=== PATIENT | male | born 1940 | race Caucasian/White ===

== ENCOUNTER 2018-07-02 12:34 | Day surgery (SDC) | payer MEDICARE, BC, OTHER ==
[~2018-07-02] VITALS: Ht 167.6 cm; Wt 68.4 kg
[~2018-07-02 12:34] MED LIST: GLYCOPYRROLATE INJ 0.2 MG/ML 2 ML VIAL As Ordered ONE; HYDROmorphone HCL 2 MG/ML 1ML VIAL (J1170) As Ordered ONE; LIDOCAINE 2% INJ 100 MG/5 ML SDV (FOR ANES.) As Ordered ONE; MIDAZOLAM INJ 2 MG/2 ML VIAL (J2250) As Ordered ONE; NEOSTIGMINE 10 MG/10 ML VIAL (J2710) As Ordered ONE; ONDANSETRON 4MG/2ML VIAL (J2405) As Ordered ONE; PHENYLephrine HCL 500 MCG/5 ML (100MCG/ML) SYRINGE (J2370) As Ordered ONE; PROPOFOL 200 MG/20 ML VIAL As Ordered ONE; ROCURONIUM BROMIDE 50 MG/5 ML VIAL As Ordered ONE; dexameTHASONE 4 MG/ML 1ML VIAL (J1100) As Ordered ONE; fentaNYL 100 MCG/2 ML INJECTION (J3010) As Ordered ONE
[2018-07-02] MEDS ORDERED: BUPIVACAINE/EPIN 0.25% 30 ML VIAL As Ordered ONE (13:00)
[2018-07-02] MEDS ORDERED: BACITRACIN PWD 50,000 UNITS VIAL As Ordered ONE (13:00)
[2018-07-02] MEDS ORDERED: THROMBIN SOLN 20,000 UNITS KIT As Ordered ONE (13:00)
[2018-07-02] MEDS ORDERED: CelecoXIB (CeleBREX) 100 MG CAP PO ONE (13:15)
[2018-07-02] MEDS ORDERED: PERCOCET 5MG/325MG TAB PO ONE (13:15)
[2018-07-02] MEDS ORDERED: GABAPENTIN 300 MG CAP PO ONE (13:15)
[2018-07-02] MEDS ORDERED: VANCOMYCIN HCL 1,000 MG, VIAL MATE ADAPTER 1 EACH in D5W 250 ML IV ONE (13:15)
[2018-07-02] MEDS ORDERED: LR 1,000 ML IV SCH ×2 (13:15→17:30)
[2018-07-02] MEDS ORDERED: ePHEDrine SULFATE 25 MG/5 ML(5MG/ML) SYRINGE As Ordered ONE (15:55)
[2018-07-02] MEDS ORDERED: PHENYLEPHRINE INJ 10MG/ML VIAL (J2370) As Ordered ONE (15:55)
[2018-07-02] MEDS ORDERED: PERCOCET 5MG/325MG TAB PO PRN ×3 (17:30)
[2018-07-02] MEDS ORDERED: CYCLOBENZAPRINE 10 MG TAB PO PRN (17:30)
[2018-07-02] MEDS ORDERED: fentaNYL 100 MCG/2 ML INJECTION (J3010) IV PRN (17:30)
[2018-07-02] MEDS ORDERED: MORPHINE 4 MG/ML 1ML VIAL/SYRINGE (J2270) IV PRN (17:30)
[2018-07-02] MEDS ORDERED: ONDANSETRON 4MG/2ML VIAL (J2405) IV PRN ×3 (17:30→18:26)
[2018-07-02 18:00] VITALS: BP 138/72
[2018-07-02] MEDS: D5W/LR 1,000 ML IV SCH (18:29)
[2018-07-02 18:30] VITALS: BP 138/71
[2018-07-02 19:30] VITALS: BP 135/70
[2018-07-02 20:30] VITALS: BP 145/75
[2018-07-02 21:30] VITALS: BP 155/73
[2018-07-02 22:30] VITALS: BP 124/63
[2018-07-03 02:00] VITALS: BP 143/70
[2018-07-03] MEDS: D5W/LR 1,000 ML IV SCH (03:30)
[2018-07-03 06:00] VITALS: BP 117/67
--- NOTE | 2018-07-03 07:19 | REP ---
Lumbar spine single cross-table lateral view in the operating room: The tip of a metallic probe is seen within the soft tissues posterior to the posterior elements at the L5 S1 level. Electronically Signed by John Bazan MD 07/03/2018 07:10 A
--- NOTE | 2018-07-03 07:36 | RO ---
DATE OF PROCEDURE: 07/02/2018 PREOPERATIVE DIAGNOSIS: Left lower extremity radiculopathy secondary to disk bulge and facet hypertrophy at L5-S1. POSTOPERATIVE DIAGNOSIS: Left lower extremity radiculopathy secondary to disk bulge and facet hypertrophy at L5-S1. PROCEDURE PERFORMED: Left L5-S1 laminotomy with microdiskectomy. SURGEON: Dr. Alba MORGUE ATTENDANT: Amita August physician construction administrative assistant. ANESTHESIA: General. ESTIMATED BLOOD LOSS: Less than 20 mg and replaced with crystalloid. COMPLICATIONS: No complications. INDICATIONS: Left lower extremity radiculopathy. MRI evidence of disk bulge and facet hypertrophy at L5-S1 as well as electrodiagnostic evidence of a subacute S1 radiculopathy. The patient elects for operative intervention. Consent reviewed in detail with the patient including kimberly discussion of the pathology involved procedure proposed, alternatives including doing nothing and risks including but not limited to pain, failure, infection, bleeding blood loss, incomplete relief of symptoms, need for additional surgery and other issues. The patient agrees to proceed. OPERATIVE COURSE: Identified in the holding area, site and side verified brought to the operating site side verified. General endotracheal anesthesia was administered. He was positioned in the prone position for expose the lumbar spine. Once I and the fisher seal were comfortable the patient's positioning, he was then sterilely prepped and draped in the usual fashion. Next, I utilized 3.5 loupe magnification. I stood on the patient's left, Mrs. August on the patient's right side. The incision was outlined with a marking pen based on palpation of bony landmarks and also located inferior to his previous lumbar incision for decompression years ago. The incision was infiltrated with 0.25% Marcaine with epinephrine length of the incision was 2 1/2 fingerbreadths incision was made with a 10 blade developed down through skin subcuticular tissues posterior fascia was identified and divided. Dissection continued exposing the L5 lamina. The high-speed bur was utilized to drill a divot in the L5 lamina. The Mcdonald Adrian probe was placed in the divot a cross-table lateral was taken to verify our level. Next, retractors were placed. Loupes were removed. My headlamp was removed the operating microscope was sterilely draped and brought in for this portion of the procedure. My physician construction administrative assistant, looked through the oculars on the right and I through the oculars on the left. I utilized the high-speed bur to implement a left unilateral laminotomy at the L5 level continuing superiorly to near the bare area inferiorly to the bare area of S1, elevated ligamentum flavum using curettes and removed using #2 and #3 Kerrisons. Next, and subarticular space was decompressed using #2 Kerrisons. The S1 nerve root traversing was identified and appreciated and noted to have what appeared to be some bruising in the subarticular aspect of the nerve root over the shoulder. Next the nerve root was swept medially identified relatively hard bulging disk annulus complex. I was able to use 11 blade to open the annulus. Mrs. August utilized the suction levels retractor to retract the nerve root and there was some friable disk material which extruded from this annulotomy. This was removed using Bess pituitaries. Next the nerve root was traced using the Mcdonald Adrian as well as the neural foramina at 07/23 both appeared to be patent. Next bipolar cautery was utilized for hemostasis as well as thrombin Gelfoam all thrombin Gelfoam removed the conclusion the case. Next, retractors were removed post lumbar fascia reapproximated with interrupted stitch deep dermis approximated with interrupted stitch. Pernio dressing applied. The patient now was log-rolled to hospital bed, extubated and able to be moved to recovery room in good condition. For further details please refer to medical record.
== END 2018-07-03 09:31 | disposition home or self-care (01) ==
LOC: M SDC 12:34 → EDSTATUS 14:45 → M MS5PR 17:55 → M SDC 07-03 09:31
PROVIDERS: ATTEND Orthopaedic Surgery
DX: M51.27 Other intervertebral disc displacement, lumbosacral region (principal); M54.16 Radiculopathy, lumbar region; Z88.0 Allergy status to penicillin
CPT/HCPCS: 36415; 63030; 72100; 86850; 86900; 86901; 88304; J1100; J1170; J2250; J2370; J2405; J2710; J3010; J3370

== ENCOUNTER 2018-08-16 12:32 | Observation (INO) | payer MEDICARE, BC, OTHER ==
[~2018-08-16] VITALS: Ht 170.2 cm; Wt 67.8 kg
[2018-08-16 13:03] LABS: BASO % 0.3 % (0.0-1.0); EOS # 0.1 10^3/uL (0.0-0.50); EOS % 1.4 % (0.0-3.0); HEMATOCRIT 44.5 % (42.0-52.0); HEMOGLOBIN 15.1 g/dl (13.5-17.5); LYMPH % 15.1 % (24.0-44.0); MEAN CORPUSCULAR HEMOGLOBIN 31.1 pg (27.0-33.0); MEAN CORPUSCULAR HGB CONC 33.9 g/dl (32.0-36.5); MEAN CORPUSCULAR VOLUME 91.6 fl (80.0-96.0); MONO # 0.6 10^3/uL (0.0-0.8); MONO % 8.8 % (0.0-5.0); NEUTROPHILS # 4.8 10^3/uL (1.8-7.7); NEUTROPHILS % 74.1 % (36.0-66.0); PLATELET COUNT, AUTOMATED 208 10^3/uL (150-450); RED BLOOD COUNT 4.86 10^6/uL (4.30-6.10); WHITE BLOOD COUNT 6.5 10^3/uL (4.0-10.0)
[2018-08-16] MEDS ORDERED: METOPROLOL 5 MG/5 ML VIAL As Ordered ONE (13:07)
[2018-08-16] MEDS ORDERED: NS 1,000 ML IV SCH (13:09)
[2018-08-16] MEDS: METOPROLOL 5 MG/5 ML VIAL IV SCH ×3 (13:12→13:32)
[2018-08-16 13:33] LABS: BLOOD UREA NITROGEN 16 MG/DL (7-18); CALCIUM LEVEL 8.4 MG/DL (8.8-10.2); CARBON DIOXIDE LEVEL 24 MEQ/L (21-32); CHLORIDE LEVEL 106 MEQ/L (98-107); CPK CREATINE PHOSPHOKINASE 196 U/L (39-308); CREATININE FOR GFR 0.87 MG/DL (0.70-1.30); GLOMERULAR FILTRATION RATE > 60.0 (>42); GLUCOSE, FASTING 101 MG/DL (70-100); POTASSIUM SERUM 4.1 MEQ/L (3.5-5.1); SODIUM LEVEL 138 MEQ/L (136-145); TROPONIN I < 0.02 NG/ML (< 0.10)
[2018-08-16 13:52] LABS: FREE T4 0.95 NG/DL (0.76-1.46)
[2018-08-16] MEDS ORDERED: AMIODARONE HCL 150 MG in APPROPRIATE DILUENT 1 EA IV STA ×2 (13:58→17:23)
[2018-08-16] MEDS ORDERED: NS 250 ML IV ONE (14:15)
--- NOTE | 2018-08-16 14:27 | REP ---
Clinical: Acute chest pain . Comparison: None . Findings: The mediastinum and cardiac silhouette are stable and within normal limits for portable technique. The lung raymundo are clear without acute consolidation, effusion, or pneumothorax. Skeletal structures are intact. Impression: No acute cardiopulmonary process appreciated. Electronically Signed by Lc Osorio MD 08/16/2018 02:18 P
[2018-08-16] MEDS ORDERED: METOPROLOL TART 25 MG TABLET PO ONE (14:45)
[2018-08-16] MEDS ORDERED: APIXABAN 5 MG TAB (ELIQUIS) PO ONE (14:45)
[2018-08-16] MEDS ORDERED: MAALOX 30 ML SUSP *UDC PO PRN (15:15)
[2018-08-16] MEDS ORDERED: ACETAMINOPHEN TAB 650MG DOSE (2X325MG) PO PRN (15:15)
[2018-08-16] MEDS ORDERED: MOM 30ML SUSPENSION UDC PO PRN (15:15)
--- NOTE | 2018-08-16 15:19 | HPEPDOC ---
General Date of Admission 08/16/18 Date of Service: August 16, 2018 Attending Physician: PABLO SOLANO MD Chief Complaint The patient is a 78-year-old male admitted with a reason for visit of General Michael franks. Source: Patient Exam Limitations: No limitations Timing/Duration: 1-3 hours Severity: Moderate Associated Symptoms: Syncope, Weakness, Dizziness History of Present Illness 78 years old white male with past medical history of no medical problems, was in his usual state of health when he came back from shopping this afternoon he felt dizzy with the warm feeling in his head and syncope-like episode and he recovered spontaneously, but happened again a few times and decided come to ER. He was transferred to the was diagnosed with A. fib with rapid ventricular response. Patient denies chest pain or shortness of breath or palpitations Home Medications No Active Prescriptions or Reported Meds Allergies Coded Allergies: Penicillins (Verified Allergy, Intermediate, rash, 08/16/18) Past Medical History Medical History None Surgical History . 2. Inguinal hernia repairs and 2 back surgeries Family History Significant Family History: Other (father had a heart attack in the young age and sister had a gliomyosarcoma) Social History * Smoker: Denies Alcohol: Denies Drugs: denies A-FIB/CHADSVASC A-FIB History Current/History of A-Fib/PAF?: Yes Current PO Anticoag Therapy: Yes Review of Systems Constitutional: Reports: Weakness; Denies: Chills, Fever, Malaise, Night Sweats, Fatigue, Weight Loss, Lethargy, Other Eyes: Denies: Pain, Vision change, Conjunctivae inflammation, Eyelid inflammation, Redness, Other ENT: Denies: Head Aches, Ear Pain, Dysphagia, Sinus Congestion, Post Nasal Drip, Sore Throat, Epistaxis, Other Symptoms Skin: Denies: Rash, Lesions, Jaundice, Bruising, Itching, Dry, Breakdown, Nail Changes, Other Pulmonary: Denies: Dyspnea, Cough, Pleuritic Chest Pain, Other Symptoms Cardiovascular: Denies: Chest Pain, Palpitations, Orthopnea, Paroxysmal Noc. Dyspnea, Edema, Lt Headedness, Other Symptoms Gastrointestinal: Denies: Nausea, Vomiting, Abdominal Pain, Diarrhea, Constipation, Melena, Hematochezia, Other Symptoms Genitourinary: Denies: Dysuria, Frequency, Incontinence, Hematuria, Retention, Other Symptoms Hematologic: Denies: Bruising, Bleeding Excessively, Petecchia, Purpura, Enlarged Lymph Nodes, Other Hematologic Endocrine: Denies: Polydipsia, Polyphagia, Polyuria, Heat Intolerance, Cold Intolerance, Other Endocrine Sx Musculoskeletal: Denies: Neck Pain, Back Pain, Shoulder Pain, Arm Pain, Hand Pain, Leg Pain, Foot Pain, Joint Pain, Muscle Pain, Spasms, Other Symptoms Neurological: Reports: Weakness, Other Symptoms (syncope); Denies: Numbness, Incoordination, Change in speech, Confusion, Seizures Psych: Denies: Mood Normal, Anxiety, Depression, Memory Issues, Thoughts of Self Harm, Anger, Thoughts of Harming Other, Other Psych Physical Examination General Exam: Positive: Alert, Cooperative Eye Exam: Positive: PERRLA, Conjunctiva & lids normal ENT Exam: Positive: Atraumatic, Mucous membr. moist/pink Neck Exam: Positive: Supple Chest Exam: Positive: Clear to auscultation, Normal air movement Heart Exam: Positive: Tachycardic, Irregular Rhythm, Normal S1, Normal S2 Telemetry: Positive: Atrial fibrillation Abdomen Exam: Positive: Normal bowel sounds Extremity Exam: Positive: Normal pulses Skin Exam: Positive: Nl turgor and temperature Neuro Exam: Positive: Normal Gait, Normal Speech, Strength at 5/5 X4 ext, Cranial Nerves 3-12 NL Psych Exam: Positive: Mental status NL, Mood NL Vital Signs Vital Signs Date Time Temp Pulse Resp B/P (MAP) Pulse Ox O2 Delivery O2 Flow Rate FiO2 08/16/18 13:40 122 16 115/72 (86) 08/16/18 13:33 96 08/16/18 12:46 98.4 Room Air Laboratory Data Labs 24H Laboratory Tests 2 08/16/18 12:52: Immature Granulocyte % (Auto) 0.3, White Blood Count 6.5, Red Blood Count 4.86, Hemoglobin 15.1, Hematocrit 44.5, Mean Corpuscular Volume 91.6, Mean Corpuscular Hemoglobin 31.1, Mean Corpuscular Hemoglobin Concent 33.9, Red Cell Distribution Width 12.7, Platelet Count 208, Neutrophils (%) (Auto) 74.1H, Lymphocytes (%) (Auto) 15.1L, Monocytes (%) (Auto) 8.8H, Eosinophils (%) (Auto) 1.4, Basophils (%) (Auto) 0.3, Neutrophils # (Auto) 4.8, Lymphocytes # (Auto) 1.0L, Monocytes # (Auto) 0.6, Eosinophils # (Auto) 0.1, Basophils # (Auto) 0.0, Nucleated Red Blood Cells % (auto) 0.0, Anion Gap 8, Glomerular Filtration Rate > 60.0, Blood Urea Nitrogen 16, Creatinine 0.87, Sodium Level 138, Potassium Level 4.1, Chloride Level 106, Carbon Dioxide Level 24, Calcium Level 8.4L, Total Creatine Kinase 196, Creatine Kinase MB 5.0H, Creatine Kinase MB Relative Index 2.70, Troponin I < 0.02, Thyroid Stimulating Hormone (TSH) 1.770, Free Thyroxine 0.95 CBC/BMP Laboratory Tests 08/16/18 12:52 Red Blood Count 4.86, Mean Corpuscular Volume 91.6, Mean Corpuscular Hemoglobin 31.1, Mean Corpuscular Hemoglobin Concent 33.9, Red Cell Distribution Width 12.7, Neutrophils (%) (Auto) 74.1 H, Lymphocytes (%) (Auto) 15.1 L, Monocytes (%) (Auto) 8.8 H, Eosinophils (%) (Auto) 1.4, Basophils (%) (Auto) 0.3, Neutrophils # (Auto) 4.8, Lymphocytes # (Auto) 1.0 L, Monocytes # (Auto) 0.6, Eosinophils # (Auto) 0.1, Basophils # (Auto) 0.0, Calcium Level 8.4 L, Total Creatine Kinase 196 Problems (1) Atrial fibrillation with RVR Status: Acute Problem Text: Admit patient to PCU for observation Telemetry monitoring apaxiban 2.5 mg by mouth twice a day Metoprolol 25 mg by mouth every 8 hours Patient did receive 1 dose of amiodarone in ED Dr. Rodgers was called and spoken with by ED physician, Dr. Isabel, and recommended above management Continue monitoring Continue IV fluids DVT prophylaxis as patient is on a apaxiban . Bilateral SCDs Will monitor him closely Plan / VTE VTE Prophylaxis Ordered?: Yes PABLO SOLANO MD August 16, 2018 15:19
[2018-08-16] MEDS ORDERED: D31000TA PO (15:27)
[2018-08-16 16:32] VITALS: BP 115/79
[2018-08-16 18:27] LABS: NT-PRO BNP 288 PG/ML (<450); TROPONIN I < 0.02 NG/ML (< 0.10)
--- NOTE | 2018-08-16 19:36 | ECGEPIP ---
[facility] - ED Test Date: 2018-08-16 Pat Name: DAVE LARIOS Department: Room: - Gender: Male Labels Molder: ROXANA : 1940 Requested By: Dimple Landers Order Number: [id number] Reading MD: Dimple Landers Measurements Intervals [place] Rate: 147 P: [place]: -1 QRS: QRSD: 92 T: 41 QT: 275 QTc: 431 Interpretive Statements ATRIAL FIBRILLATION WITH RAPID VENTRICULAR RESPONSE LAD LEFT ANTERIOR FASCICULAR BLOCK SEPTAL MYOCARDIAL INFARCTION, OF INDETERMINATE AGE NONSPECIFIC ST T WAVE CHANGES NO PIOR ECG Electronically Signed on 08-16-2018 19:36:34 EDT by Dimple Landers
--- NOTE | 2018-08-16 19:40 | ECGEPIP ---
[facility] - ED Test Date: 2018-08-16 Pat Name: DAVE LARIOS Department: Room: [place] [address] Gender: Male Java Sdet: ASHLEY : 1940 Requested By: Dimple Landers Order Number: [id number] Reading MD: Dimple Landers Measurements Intervals [place] Rate: 114 P: [place]: -1 QRS: QRSD: 102 T: 10 QT: 298 QTc: 411 Interpretive Statements ATRIAL FIBRILLATION WITH RAPID VENTRICULAR RESPONSE LAD LEFT ANTERIOR FASCICULAR BLOCK SEPTAL MYOCARDIAL INFARCTION,OF INDETERMINATE AGE NONSPECIFIC ST T WAVE CHANGES CW 08/16/[address] T WAVE CHANGES Electronically Signed on 08-16-2018 19:40:15 EDT by Dimple Landers
[2018-08-16 20:00] VITALS: BP 102/65
[2018-08-16] MEDS: DOCUSATE SODIUM 100 MG CAP PO SCH (21:12)
[2018-08-16] MEDS: APIXABAN 2.5 MG TAB (ELIQUIS) PO SCH (21:13)
[2018-08-16] MEDS: METOPROLOL TART 25 MG TABLET PO SCH (21:13)
[2018-08-16 23:59] VITALS: BP 114/76
[2018-08-17] VITALS (7 sets, daily range): BP systolic 90–115; BP diastolic 55–73
[2018-08-17 05:54] LABS: HEMATOCRIT 44.1 % (42.0-52.0); HEMOGLOBIN 14.7 g/dl (13.5-17.5); MEAN CORPUSCULAR HEMOGLOBIN 29.9 pg (27.0-33.0); MEAN CORPUSCULAR HGB CONC 33.3 g/dl (32.0-36.5); MEAN CORPUSCULAR VOLUME 89.8 fl (80.0-96.0); PLATELET COUNT, AUTOMATED 208 10^3/uL (150-450); RED BLOOD COUNT 4.91 10^6/uL (4.30-6.10); WHITE BLOOD COUNT 7.9 10^3/uL (4.0-10.0)
[2018-08-17 06:24] LABS: ALBUMIN 3.2 GM/DL (3.2-5.2); ALT/SGPT 24 U/L (12-78); BILIRUBIN,TOTAL 0.8 MG/DL (0.2-1.0); BLOOD UREA NITROGEN 16 MG/DL (7-18); CALCIUM LEVEL 8.3 MG/DL (8.8-10.2); CARBON DIOXIDE LEVEL 26 MEQ/L (21-32); CHLORIDE LEVEL 108 MEQ/L (98-107); CREATININE FOR GFR 0.93 MG/DL (0.70-1.30); GLOMERULAR FILTRATION RATE > 60.0 (>42); GLUCOSE, FASTING 90 MG/DL (70-100); MAGNESIUM LEVEL 2.1 MG/DL (1.8-2.4); POTASSIUM SERUM 3.9 MEQ/L (3.5-5.1); SODIUM LEVEL 140 MEQ/L (136-145); TOTAL PROTEIN 6.1 GM/DL (6.4-8.2)
[2018-08-17] MEDS: METOPROLOL TART 25 MG TABLET PO SCH ×2 (06:42→14:04)
[2018-08-17] MEDS: VITAMIN D 1,000 INTERNATIONAL UNITS TABLET PO SCH ×2 (08:23→20:59)
[2018-08-17] MEDS: APIXABAN 2.5 MG TAB (ELIQUIS) PO SCH (08:23)
[2018-08-17] MEDS: DOCUSATE SODIUM 100 MG CAP PO SCH ×2 (08:23→20:59)
--- NOTE | 2018-08-17 11:00 | IPNPDOC ---
Date Seen The patient was seen on 08/17/18. Progress Note SUBJECTIVE: Patient tells me that he is feeling well he denies palpitations and is improved from previous days otherwise patient denies chest pain shortness breath nausea vomiting fevers chills OBJECTIVE PHYSICAL EXAMINATION: VITAL SIGNS: Please see below. GENERAL: Pleasant elderly slim man sitting up in bed awake alert oriented speaking in complete sentences no acute distress HEENT: Moist mucous membranes no elevation and CVP CARDIOVASCULAR: S1 S2 regular no additional heart sounds appreciated. Mildly tachycardic RESPIRATORY: Clear to auscultation bilaterally. ABDOMINAL: Bowel sounds present abdomen soft and nontender EXTREMITIES: No clubbing cyanosis or edema NEUROLOGICAL: Spontaneously moves all 4 extremities cranial 2 through 12 grossly intact no gross focal deficits appreciated PSYCHOLOGICAL: Appropriate LABORATORY DATA, MICROBIOLOGY: Please see below. IMAGING STUDIES: Chest x-ray from 08/16/2018:No acute cardiopulmonary process appreciated. DVT prophylaxis ordered?: Apixaban ASSESSMENT AND PLAN: This is a 78-year-old man with new onset atrial fibrillation with rapid ventricular response. PROBLEMS: 1. New-onset atrial fibrillation with rapid ventricular response: Status post amiodarone 1 in the emergency room he is started on metoprolol 25 mg every 8 hours her blood pressure is a little bit soft. A cardiology consultation placed he's been started on anticoagulation and echocardiogram has been ordered. For the time being to hesitate to titrate up his metoprolol given his soft blood pressure. In regards to his anticoagulation his chadsvasc2 score is 2 given his age. Risks and benefits regarding anticoagulation were discussed at length all questions answered to his satisfaction he is aware of the risks of bleeding intracranially in the gastrointestinal tract as well in addition to easy bruising. DISPOSITION: Pending rate control cardiology consult and echocardiogram. VS, I&O, 24H, Fishbone Vital Signs/I&O Vital Signs Date Time Temp Pulse Resp B/P (MAP) Pulse Ox O2 Delivery O2 Flow Rate FiO2 08/17/18 07:42 97.7 102 18 98/72 (81) 94 08/16/18 12:46 Room Air I&O- Last 24 Hours up to 6 AM 08/17/18 06:00 Intake Total 0 ml Output Total 1000 ml Balance -1000 ml Laboratory Data 24H LABS Laboratory Tests 2 08/16/18 12:52: Immature Granulocyte % (Auto) 0.3, White Blood Count 6.5, Red Blood Count 4.86, Hemoglobin 15.1, Hematocrit 44.5, Mean Corpuscular Volume 91.6, Mean Corpuscular Hemoglobin 31.1, Mean Corpuscular Hemoglobin Concent 33.9, Red Cell Distribution Width 12.7, Platelet Count 208, Neutrophils (%) (Auto) 74.1H, Lymphocytes (%) (Auto) 15.1L, Monocytes (%) (Auto) 8.8H, Eosinophils (%) (Auto) 1.4, Basophils (%) (Auto) 0.3, Neutrophils # (Auto) 4.8, Lymphocytes # (Auto) 1.0L, Monocytes # (Auto) 0.6, Eosinophils # (Auto) 0.1, Basophils # (Auto) 0.0, Nucleated Red Blo od Cells % (auto) 0.0, Anion Gap 8, Glomerular Filtration Rate > 60.0, Blood Urea Nitrogen 16, Creatinine 0.87, Sodium Level 138, Potassium Level 4.1, Chloride Level 106, Carbon Dioxide Level 24, Calcium Level 8.4L, Total Creatine Kinase 196, Creatine Kinase MB 5.0H, Creatine Kinase MB Relative Index 2.70, Troponin I < 0.02, Thyroid Stimulating Hormone (TSH) 1.770, Free Thyroxine 0.95 08/16/18 17:45: Troponin I < 0.02, D-Dimer, Quantitative 366.90, MC-Xjr-T-Type Natriuretic Peptide 288 08/17/18 05:30: Nucleated Red Blood Cells % (auto) 0.0, Anion Gap 6L, Glomerular Filtration Rate > 60.0, Blood Urea Nitrogen 16, Creatinine 0.93, Sodium Level 140, Potassium Level 3.9, Chloride Level 108H, Carbon Dioxide Level 26, Calcium Level 8.3L, Aspartate Amino Transf (AST/SGOT) 14, Alanine Aminotransferase (ALT/SGPT) 24, Alkaline Phosphatase 59, Total Bilirubin 0.8, Total Protein 6.1L, Albumin 3.2, Magnesium Level 2.1, Albumin/Globulin Ratio 1.10 CBC/BMP Laboratory Tests 08/16/18 12:52 Red Blood Count 4.86, Mean Corpuscular Volume 91.6, Mean Corpuscular Hemoglobin 31.1, Mean Corpuscular Hemoglobin Concent 33.9, Red Cell Distribution Width 12.7, Neutrophils (%) (Auto) 74.1 H, Lymphocytes (%) (Auto) 15.1 L, Monocytes (%) (Auto) 8.8 H, Eosinophils (%) (Auto) 1.4, Basophils (%) (Auto) 0.3, Neutrophils # (Auto) 4.8, Lymphocytes # (Auto) 1.0 L, Monocytes # (Auto) 0.6, Eosinophils # (Auto) 0.1, Basophils # (Auto) 0.0, Calcium Level 8.4 L, Total Creatine Kinase 196 08/17/18 05:30 Red Blood Count 4.91, Mean Corpuscular Volume 89.8, Mean Corpuscular Hemoglobin 29.9, Mean Corpuscular Hemoglobin Concent 33.3, Red Cell Distribution Width 12.7, Calcium Level 8.3 L, Aspartate Amino Transf (AST/SGOT) 14, Alanine Aminotransferase (ALT/SGPT) 24, Alkaline Phosphatase 59, Total Bilirubin 0.8, Total Protein 6.1 L, Albumin 3.2 ALEX BARON MD August 17, 2018 11:00
--- NOTE | 2018-08-17 13:54 | IPN ---
DATE: 08/17/2018 Mr Shawn Edge was seen earlier this morning, he was intubated in bed in no acute distress at rest. He has not been having any palpitations since in the hospital. He came yesterday with dizziness and also has not been having any. Yesterday, it was severe and associated with some flushing and shortness of breath. Upon arrival at the ER, he was found to be in atrial fibrillation with a rapid ventricular rate of 150 beats per minute . At times it was reported from the ER that his heart rates go up to 200 beats per minute. He stated that he has been having brief episodes of lightheadedness on and off but yesterday, it was more severe. He thinks he was having a period of atrial fibrillation. He thinks that he might have episodes of paroxysmal atrial fibrillation at that time. He has been ambulating in the room. He denies any chest pain, shortness of breath. His serum troponin has been negative and serum D-dimer is negative. He denies any bleeding. PHYSICAL EXAMINATION: The patient is alert and oriented, he is in no acute distress at rest and his signs today revealed a blood pressure of 109/69 with a pulse of 95, respiration 18 and his maximum temperature is 97.6 degree Fahrenheit with a oxygen saturation of 97% on room air. He has a negative fluid balance of about of 500mL yesterday 08/16/2018. Examination of the head: Atraumatic. Neck: Neck is supple and no JVD appreciated. The lungs were clear bilaterally without any wheezing or crackles. The head examination revealed a regular heart sounds without gallops. The PMI is not displaced. There is no rub. Abdomen is soft and nontender, bowel sounds seen. Extremities: Revealed no pedal edema. Neurologic examination is negative for focal deficit. LABORATORY DATA: CBC done today revealed a WBC of 7.9, hemoglobin 14.7, hematocrit 44.1 and platelet count 208,000. BMP revealed a sodium of 140, potassium 3.9, chloride 108, CO2 26, BUN 16, creatinine 0.93, GFR more than 60 fasting glucose 90 and calcium 8.3. The liver enzymes revealed a total bilirubin of 0.8, AST 14 ALT 24, albumin 3.2. Next serum troponin is less than 0.02 times two. Serum Pro BMP is 288. Serum TSH is 1.77. Serum D-dimer is 366.9. 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 He appears to be in normal sinus rhythm on physical examination and will have an EKG and review his telemetry. He is asymptomatic. He is doing well on current meds and will continue same. He is planning to have an echocardiogram then further recommendations will be given. We might be able to discharge him home later today after reviewing his echocardiogram.
[2018-08-17] MEDS: APIXABAN 5 MG TAB (ELIQUIS) PO SCH (20:59)
[2018-08-17] MEDS: METOPROLOL TART 12.5 MG PER 1/2 TAB PO SCH (20:59)
--- NOTE | 2018-08-17 22:16 | CR ---
DATE OF CONSULTATION: 08/16/2018 REFERRING PHYSICIAN: Dr. Jake Scruggs REASON FOR CONSULTATION: Atrial fibrillation. HISTORY OF PRESENT ILLNESS: A 78-year-old male, relatively healthy without any history of hypertension, hyperlipidemia, diabetes mellitus, valvular heart disease, thyroid disorders, started having a sensation of fullness in the back of his head associated with shortness of breath and lightheadedness. He denies any associated chest pain, palpitations. This happened on many occasions today, he stated probably 10 times, and he decided to come to the emergency room (ER) further evaluation around noon time. Upon arrival in the ER, he was found to be in atrial fibrillation with a rapid ventricular rate, reported to be 140-150 beats per minute. His blood pressure was 121/78 with a respirations of 18, and his oxygenation was 96%. Case was discussed with ER physician covering, and we decided to give him intravenous (IV) beta joey as well as IV amiodarone and admit him for further cardiac evaluation. He was started on small dose of short-acting beta-joey with metoprolol titrate and anticoagulation therapy with apixaban pending further evaluation. When I saw Mr. Sahwn Edge this afternoon, he was supine in bed in no acute distress at rest. His heart rate is now slower at about 110 beats per minute and seems to be sinus tachycardia. Prior to today, he was doing fine and very active without any chest pain, shortness of breath, and he denies any pedal edema, orthopnea, syncope, or near syncope. He has no cough, hemoptysis, or fever. He has no nausea, vomiting, diarrhea, melena, or hematemesis. There is no acute swelling or redness of the joints. He denies any bleeding. There is no manifestation of transient ischemic attacks (TIA)/cerebrovascular accident (CVA). PAST MEDICAL HISTORY: As mentioned above, he denies hypertension, hyperlipidemia, diabetes mellitus. He denies any history of thyroid disorders, significant valvular heart disease that he is aware of, kidney disease, restrictive coronary artery disease, myocardial infarction, congestive heart failure, cardiomyopathy, sudden cardiac . PAST SURGICAL HISTORY: Positive for surgery done on his lower back, on his spine, twice, and also bilateral inguinal hernia repair. FAMILY HISTORY: Positive for heart disease. His father from complications of a myocardial infarction (DE) in his early 50s. SOCIAL HISTORY: The patient denies any smoking, EtOH (ethanol) abuse, or illicit drugs. He is very active. ALLERGIES: PENICILLIN, and adverse reaction describes hives. The patient is full code. PHYSICAL EXAMINATION: The patient is alert and oriented in no acute distress at rest and very present. His most recent vital signs reveal a blood pressure of 115/79 with a pulse of 108-112, respirations 16-18, and his oxygen saturation is 98% on room air with a temperature of 97.6 degrees Fahrenheit. Examination of the head: Atraumatic. Fundus examination was not done. Neck is supple and no jugular venous distention (JVD) appreciated. No carotid bruit. Lungs revealed minimal crackles at the bases but no wheezing. Heart examination revealed irregular heart sounds without gallops. The point of maximal impulse (PMI) is slightly displaced inferiorly. There is no rub. There is a systolic murmur, grade 2/6, over the precordium, louder at the base of the heart without any significant radiation. Abdomen is soft and nontender. Bowel sounds are active. Extremities revealed no pedal edema. Peripheral pulses, dorsalis pedis, were +2 and equal. Neurological examination is negative for focal deficit. LABORATORY DATA: BMP done today revealed a sodium of 138, potassium 4.1, chloride 106, CO2 of 24, BUN 16, creatinine 0.87, GFR greater than 60, fasting glucose 101, and calcium 8.4. Serum TSH is 1.77. Serum troponin is less than 0.02. CBC revealed a WBC of 6.5, hemoglobin 15.1, hematocrit 44.5, and platelets 208,000. Chest x-ray appeared to be normal. No cardiomegaly. No pleural effusion. No manifestation of heart failure. EKG on admission at 12:48:49 revealed a narrow complex supraventricular tachycardia with some minimal repolarization abnormalities, left axis deviation, left anterior hemiblock, and underlying rhythm seems to be atrial fibrillation. Could not rule out prior septal infarct. Repeat EKG done also today at 15:20:23 revealed normal sinus rhythm, sinus arrhythmia, left axis deviation, left anterior hemiblock, possible prior septal infarct, and repolarization abnormalities noted in the high lateral leads. Cannot rule out an ectopic atrial rhythm. IMPRESSION: 1. Paroxysmal atrial fibrillation. 2. Abnormal EKG. 3. Valvular heart disease, probably aortic stenosis versus mitral regurgitation. Mr. Shawn Edge but she does seems to be stable at this present time from a cardiac point of view with paroxysmal atrial fibrillation. The diagnoses were discussed with him, and he has agreed to stay in the hospital for further cardiac evaluation. He is planning to have an echocardiogram, and it will be reviewed. Then further recommendations will be given. In the meantime, I will continue with the current atrioventricular (AV) blocking agent and the anticoagulation therapy with Eliquis. I also will check his serum proBNP. I also will have a D-dimer level. The etiology of his paroxysmal atrial fibrillation is not quite clear. May be related to underlying valvular heart disease. Upon review the chart, he gave a history of node problem, and this will be discussed with him when I see him. It was a pleasure to assist in the care of Mr. Shawn Edge for his underlying cardiac condition. I will continue to monitor him along with you while in the hospital. He appears to be stable.
[2018-08-18 04:00] VITALS: BP 127/79
--- NOTE | 2018-08-18 07:01 | ECHO ---
DATE OF PROCEDURE: 08/17/2018 REFERRING PHYSICIAN: Dr. Scruggs PATIENT LOCATION: Room 3213 REASON FOR ECHOCARDIOGRAM: Atrial fibrillation. 2D MEASUREMENTS: IVS: 1.1 cm LV: 3.8 cm LVPW: 1.1 cm LA: 3.4 cm Aorta: 3.1 cm IVC: 1.0 cm DOPPLER MEASUREMENTS: Mitral E: 0.37, Mitral A: 0.67 with a ratio of 0.61. Maximum tricuspid valve velocity: 2.0 m/s 2D COMMENTS: 1. Normal left ventricular size, wall thickness, and normal global left ventricular systolic function. The estimated left ventricular systolic ejection fraction is 55-60%. 2. Normal left atrium. Normal right atrium and right ventricle. 3. The atrial septum appeared to be normal without evidence of defect or shunt. 4. Normal aortic root. 5. Trace pericardial effusion noted, no evidence of cardiac tamponade. 6. The aortic valve, the mitral valve, and the tricuspid valve appeared to be normal. The pulmonic valve and proximal pulmonary artery branches also appeared to be normal. 7. The inferior vena cava was normal in size, central venous pressure is most likely normal. DOPPLER: It detects mild aortic regurgitation, mild mitral regurgitation, trace tricuspid regurgitation. The calculated pulmonary artery systolic pressure was normal. IMPRESSION 1. Low normal global left ventricular systolic function. There are some features of left ventricular diastolic dysfunction manifested by abnormal relaxation, grade 1. 2. Mild aortic regurgitation. 3. Mild mitral regurgitation. 4. Trace tricuspid regurgitation with a normal calculated pulmonary artery systolic pressure. 5. Trace pericardial effusion noted, no evidence of cardiac tamponade.
[2018-08-18 07:33] VITALS: BP 118/72
[2018-08-18] MEDS: DOCUSATE SODIUM 100 MG CAP PO SCH (09:00)
[2018-08-18 09:03] VITALS: BP 125/70
[2018-08-18] MEDS: METOPROLOL TART 12.5 MG PER 1/2 TAB PO SCH (09:03)
[2018-08-18] MEDS: APIXABAN 5 MG TAB (ELIQUIS) PO SCH (09:03)
[2018-08-18] MEDS: VITAMIN D 1,000 INTERNATIONAL UNITS TABLET PO SCH (09:03)
[2018-08-18] MEDS ORDERED: ELIQ5TAB PO (10:51)
[2018-08-18] MEDS ORDERED: METO1TAB87 PO (10:51)
--- NOTE | 2018-08-18 12:04 | DS.PDOC ---
Discharge Summary General Date of Admission August 16, 2018 at 15:02 Date of Discharge 08/18/2018 Discharge Summary DISCHARGE DIAGNOSIS:New onset paroxysmal atrial fibrillation with rapid ventricular response SECONDARY DIAGNOSIS: 1. Abnormal EKG 2. AV block 3. Vitamin D deficiency PROCEDURES PERFORMED DURING STAY: None. CONSULTANTS: Cardiology Dr. Rodgers HOSPITAL COURSE: Patient is 70-year-old man presented with some shortness of breath and palpitations he was found to Have New-Onset Atrial Fibrillation with Rapid Ventricular Response. He was seen in consultation by cardiology did have an echocardiogram completed during the stay. He was started on rate controlling agents spontaneously converted to normal sinus rhythm he was started on anticoagulation for a CHADSVASC score of 2. Risks and benefits of anticoagulation were discussed at length with him QUESTIONS answered to his satisfaction DISCHARGE MEDICATIONS: Please see below. ALLERGIES: Please see below. SUBJECTIVE: Patient tells me that he is feeling well and that he is feeling completely back to normal otherwise patient denies chest pain shortness breath nausea vomiting fevers chills OBJECTIVE PHYSICAL EXAMINATION: VITAL SIGNS: Please see below. GENERAL: Pleasant elderly slim man sitting up in bed awake alert oriented speaking in complete sentences no acute distress HEENT: Moist mucous membranes no elevation and CVP CARDIOVASCULAR: S1 S2 regular no additional heart sounds appreciated. He is no longer tachycardic RESPIRATORY: Clear to auscultation bilaterally. ABDOMINAL: Bowel sounds present abdomen soft and nontender. EXTREMITIES: No clubbing cyanosis or edema. NEUROLOGICAL: Spontaneously moves all 4 extremities cranial 2 through 12 grossly intact no gross focal deficits appreciated PSYCHOLOGICAL: Appropriate and unchanged LABORATORY DATA, MICROBIOLOGY: Please see below. IMAGING STUDIES: Chest x-ray from 08/16/2018:No acute cardiopulmonary process appreciated. ECHOCARDIOGRAM: 1. Low normal global left ventricular systolic function. There are some features of left ventricular diastolic dysfunction manifested by abnormal relaxation, grade 1. 2. Mild aortic regurgitation. 3. Mild mitral regurgitation. 4. Trace tricuspid regurgitation with a normal calculated pulmonary artery systolic pressure. 5. Trace pericardial effusion noted, no evidence of cardiac tamponade. DVT prophylaxis ordered: Oliva ASSESSMENT AND PLAN: This is a 78-year-old man with new onset paroxysmal atrial fibrillation with rapid ventricular response. PROBLEMS: 1. New-onset paroxysmal atrial fibrillation with rapid ventricular response: Status post amiodarone 1 in the emergency room he appears to have spontaneously converted back to normal sinus rhythm at this time. His metoprolol has been titrated down by cardiology. He is started on anticoagulation. I will send him home with a free 30 day trial pack of anticoagulation as well as his reduced dose of metoprolol. At this time he is completely asymptomatic and had complete return to his baseline. Cardiology also greatly appreciated, his echocardiogram did not reveal any significant valvular disease. 2. Vitamin D deficiency: Continue with supplementation DISPOSITION: Home to self-care. DISCHARGE CONDITION: Improved stable. FOLLOW UP: Cardiology within 2 weeks, PCP within one week ACTIVITY: As prior to admission. DIET: As prior to admission TIME SPENT ON DISCHARGE: 35 minutes Vital Signs/I&Os Vital Signs Date Time Temp Pulse Resp B/P (MAP) Pulse Ox O2 Delivery O2 Flow Rate FiO2 08/18/18 09:03 87 125/70 08/18/18 07:33 97.8 18 95 08/16/18 12:46 Room Air I&O- Last 24 Hours up to 6 AM 08/18/18 06:00 Intake Total 1380 ml Output Total 1100 ml Balance 280 ml Discharge Medications Scheduled Apixaban (Eliquis) 5 Mg Tablet, 5 MG PO BID Cholecalciferol (Vitamin D3) (Vitamin D3) 1,000 Unit Tablet, 1,000 UNIT PO BID, (Reported) Metoprolol Tartrate (Metoprolol Tartrate) 25 Mg Tablet, 12.5 MG PO BID Allergies Coded Allergies: Penicillins (Verified Allergy, Intermediate, rash, 08/16/18) ALEX BARON MD August 18, 2018 12:04
== END 2018-08-18 11:43 | disposition home or self-care (01) ==
LOC: M ED 12:32 → EDBD 12:32 → M ED INP 15:02 → M PCU 16:23
PROVIDERS: ADMIT Internal Medicine; ATTEND Internal Medicine
DX: I48.0 Paroxysmal atrial fibrillation (principal); R94.31 Abnormal electrocardiogram [ECG] [EKG]; I44.30 Unspecified atrioventricular block; E55.9 Vitamin D deficiency, unspecified; Z88.0 Allergy status to penicillin; Z79.01 Long term (current) use of anticoagulants
CPT/HCPCS: 36415; 71045; 80048; 80053; 82550; 82553; 83735; 83880; 84439; 84443; 84484; 85025; 85027; 85379; 93005; 93041; 93306; 94760; 96361; 96374; 96375; 96376; 99285; G0378

== ENCOUNTER 2019-05-04 11:35 | Emergency (ER) | payer MEDICARE, BC, OTHER ==
[~2019-05-04] VITALS: Ht 170.2 cm; Wt 65.9 kg
[~2019-05-04 11:35] MED LIST changes: +D31000TA PO; +ELIQ5TAB PO; -GLYCOPYRROLATE INJ 0.2 MG/ML 2 ML VIAL As Ordered ONE; -HYDROmorphone HCL 2 MG/ML 1ML VIAL (J1170) As Ordered ONE; -LIDOCAINE 2% INJ 100 MG/5 ML SDV (FOR ANES.) As Ordered ONE; +METO1TAB87 PO; -MIDAZOLAM INJ 2 MG/2 ML VIAL (J2250) As Ordered ONE; -NEOSTIGMINE 10 MG/10 ML VIAL (J2710) As Ordered ONE; -ONDANSETRON 4MG/2ML VIAL (J2405) As Ordered ONE; -PHENYLephrine HCL 500 MCG/5 ML (100MCG/ML) SYRINGE (J2370) As Ordered ONE; -PROPOFOL 200 MG/20 ML VIAL As Ordered ONE; -ROCURONIUM BROMIDE 50 MG/5 ML VIAL As Ordered ONE; -dexameTHASONE 4 MG/ML 1ML VIAL (J1100) As Ordered ONE; -fentaNYL 100 MCG/2 ML INJECTION (J3010) As Ordered ONE
--- NOTE | 2019-05-04 12:48 | REP ---
Clinical: Cough . Comparison: The 08/16/2018 . Technique: PA and lateral. Findings: The mediastinum and cardiac silhouette are normal. The lung raymundo are clear and without acute consolidation, effusion, or pneumothorax. The skeletal structures are intact and normal. Impression: 1. No focal consolidation. Electronically Signed by Lc Osorio MD 05/04/2019 12:38 P
[2019-05-04 13:00] LABS: INFLUENZA A AMPLIFICATION NEGATIVE (NEGATIVE); INFLUENZA B AMPLIFICATION NEGATIVE (NEGATIVE)
[2019-05-04] MEDS ORDERED: ACETAMINOPHEN TAB 650MG DOSE (2X325MG) PO ONE (14:15)
[2019-05-04 15:03] LABS: BASO % 0.3 % (0.0-1.0); EOS % 0.2 % (0.0-3.0); HEMATOCRIT 42.4 % (42.0-52.0); HEMOGLOBIN 13.9 g/dl (13.5-17.5); LYMPH # 0.6 10^3/uL (1.5-5.0); LYMPH % 8.8 % (24.0-44.0); MEAN CORPUSCULAR HEMOGLOBIN 30.5 pg (27.0-33.0); MEAN CORPUSCULAR HGB CONC 32.8 g/dl (32.0-36.5); MEAN CORPUSCULAR VOLUME 93.2 fl (80.0-96.0); MONO # 0.7 10^3/uL (0.0-0.8); MONO % 10.4 % (0.0-5.0); NEUTROPHILS # 5.3 10^3/uL (1.5-8.5); NEUTROPHILS % 79.8 % (36.0-66.0); PLATELET COUNT, AUTOMATED 179 10^3/uL (150-450); RED BLOOD COUNT 4.55 10^6/uL (4.30-6.10); WHITE BLOOD COUNT 6.6 10^3/uL (4.0-10.0)
[2019-05-04 15:11] LABS: INR 1.32; PROTHROMBIN TIME 16.1 SECONDS (11.8-14.0)
[2019-05-04 15:12] LABS: PARTIAL THROMBOPLASTIN TIME 37.1 SECONDS (25.0-38.4)
[2019-05-04 15:33] LABS: ALBUMIN 3.7 GM/DL (3.2-5.2); ALT/SGPT 21 U/L (12-78); BILIRUBIN,DIRECT 0.3 MG/DL (0.0-0.2); BILIRUBIN,TOTAL 0.8 MG/DL (0.2-1.0); BLOOD UREA NITROGEN 15 MG/DL (7-18); CALCIUM LEVEL 8.5 MG/DL (8.8-10.2); CARBON DIOXIDE LEVEL 29 MEQ/L (21-32); CHLORIDE LEVEL 103 MEQ/L (98-107); CK-MB VALUE MASS 1.5 NG/ML (<3.6); CPK CREATINE PHOSPHOKINASE 228 U/L (39-308); CREATININE FOR GFR 0.91 MG/DL (0.70-1.30); FREE T4 1.06 NG/DL (0.76-1.46); GLOMERULAR FILTRATION RATE > 60.0 (>42); GLUCOSE, FASTING 97 MG/DL (70-100); MB/CK RELATIVE INDEX 0.66 (< OR =4); SODIUM LEVEL 139 MEQ/L (136-145); THYROID STIMULATING HORMONE 0.556 uIU/ML (0.358-3.740); TOTAL PROTEIN 6.1 GM/DL (6.4-8.2); TROPONIN I < 0.02 NG/ML (< 0.10)
[2019-05-04] MEDS ORDERED: IBUPROFEN 600 MG TAB PO ONE (17:00)
[2019-05-04] MEDS ORDERED: ISOVUE-370 76% 100ML VIAL (Q9967) As Ordered ONE (17:00)
--- NOTE | 2019-05-04 17:52 | REPVR ---
PROCEDURE INFORMATION: Exam: CT Angiography Chest With Contrast Exam date and time: 05/04/2019 5:09 PM Age: 78 years old Clinical indication: Chest pain; Additional info: Pleuritic chest pain, cough TECHNIQUE: Imaging protocol: Computed tomographic angiography of the chest with intravenous contrast. 3D rendering: MIP and/or 3D reconstructed images were created by the technologist. Radiation optimization: All CT scans at this facility use at least one of these dose optimization techniques: automated exposure control; mA and/or kV adjustment per patient size (includes targeted exams where dose is matched to clinical indication); or iterative reconstruction. Contrast material: Isovue 370; Contrast volume: 75 ml; Contrast route: 100; COMPARISON: CR Chest, 2 view PA, Lat 05/04/2019 12:31 PM FINDINGS: Pulmonary arteries: Normal. No pulmonary emboli. Aorta: Mild aortic arch atherosclerotic calcification without ectasia. Thyroid: The partially imaged bilateral thyroid lobes are unremarkable. Lungs: Tree in bud density is present in the right lower lobe superior segment. Pleural space: No pneumothorax. No pleural effusion. Heart: Normal. No pericardial effusion. Kidneys and ureters: RIGHT renal posterior upper pole 1.8 mm calyceal calculus. Lymph nodes: No enlarged lymph nodes. Bones/joints: Mild rightward mid thoracic spinal curvature. No acute abnormality identified. Soft tissues: Unremarkable. IMPRESSION: 1. No pulmonary embolism identified. 2. No thoracic aortic aneurysm or dissection identified. 3. Tree in bud density right lower lobe. Early pneumonitis is difficult to exclude. Clinical correlation is recommended. 4. RIGHT renal calyceal lithiasis. Electronically signed by: Ameya Boggs On 05/04/2019 17:52:24 PM
[2019-05-04 18:36] VITALS: BP 132/69
[2019-05-04] MEDS ORDERED: AZITHROMYCIN 250 MG TAB PO ONE (18:45)
[2019-05-04] MEDS ORDERED: AZIT-12 PO (19:26)
--- NOTE | 2019-05-04 19:57 | ECGEPIP ---
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
== END 2019-05-04 20:06 | disposition home or self-care (01) ==
LOC: M ED 11:35 → EDBD 11:35 → M ED 20:06
DX: J18.9 Pneumonia, unspecified organism (principal); I45.19 Other right bundle-branch block; I48.91 Unspecified atrial fibrillation; G47.30 Sleep apnea, unspecified; Z79.01 Long term (current) use of anticoagulants; Z88.0 Allergy status to penicillin; Z87.891 Personal history of nicotine dependence
CPT/HCPCS: 36415; 71046; 71275; 80048; 80076; 82550; 82553; 84439; 84443; 84484; 85025; 85610; 85730; 87040; 87502; 93005; 93041; 94760; 99285; Q9967

== ENCOUNTER 2019-06-10 20:15 | Emergency (ER) | payer MEDICARE, BC, OTHER ==
[~2019-06-10] VITALS: Ht 170.2 cm; Wt 63.6 kg
[~2019-06-10 20:15] MED LIST changes: +AZIT-12 PO
[2019-06-10 21:14] LABS: BASO % 0.4 % (0.0-1.0); EOS # 0.2 10^3/uL (0.0-0.5); EOS % 2.6 % (0.0-3.0); HEMATOCRIT 42.5 % (42.0-52.0); HEMOGLOBIN 13.9 g/dl (13.5-17.5); LYMPH # 1.5 10^3/uL (1.5-5.0); LYMPH % 21.5 % (24.0-44.0); MEAN CORPUSCULAR HEMOGLOBIN 30.3 pg (27.0-33.0); MEAN CORPUSCULAR HGB CONC 32.7 g/dl (32.0-36.5); MEAN CORPUSCULAR VOLUME 92.6 fl (80.0-96.0); MONO # 0.7 10^3/uL (0.0-0.8); MONO % 10.7 % (0.0-5.0); NEUTROPHILS # 4.4 10^3/uL (1.5-8.5); NEUTROPHILS % 64.5 % (36.0-66.0); PLATELET COUNT, AUTOMATED 207 10^3/uL (150-450); RED BLOOD COUNT 4.59 10^6/uL (4.30-6.10); WHITE BLOOD COUNT 6.8 10^3/uL (4.0-10.0)
[2019-06-10] MEDS ORDERED: LIDOCAINE 2% 5ML JELLY UROJET TOP ONE (21:15)
[2019-06-10 21:25] LABS: INR 1.09; PROTHROMBIN TIME 13.8 SECONDS (11.8-14.0)
[2019-06-10 21:26] LABS: PARTIAL THROMBOPLASTIN TIME 29.6 SECONDS (25.0-38.4)
[2019-06-10 21:42] LABS: ALBUMIN 3.9 GM/DL (3.2-5.2); ALT/SGPT 28 U/L (12-78); BILIRUBIN,DIRECT 0.2 MG/DL (0.0-0.2); BILIRUBIN,TOTAL 0.4 MG/DL (0.2-1.0); BLOOD UREA NITROGEN 16 MG/DL (7-18); CALCIUM LEVEL 9.1 MG/DL (8.8-10.2); CARBON DIOXIDE LEVEL 31 MEQ/L (21-32); CHLORIDE LEVEL 107 MEQ/L (98-107); CREATININE FOR GFR 1.07 MG/DL (0.70-1.30); GLOMERULAR FILTRATION RATE > 60.0 (>42); GLUCOSE, FASTING 86 MG/DL (70-100); POTASSIUM SERUM 4.2 MEQ/L (3.5-5.1); SODIUM LEVEL 140 MEQ/L (136-145); TOTAL PROTEIN 6.7 GM/DL (6.4-8.2)
[2019-06-10] MEDS ORDERED: ISOVUE-370 76% 100ML VIAL (Q9967) As Ordered ONE (22:33)
[2019-06-10 23:18] VITALS: BP 131/66
[2019-06-10] MEDS ORDERED: METAL LOCK LOOP XX ONE (23:18)
--- NOTE | 2019-06-11 04:35 | ECGEPIP ---
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
[2019-06-11] MEDS ORDERED: CEFD1CAP8 PO (06:09)
[2019-06-11] MEDS ORDERED: NORC1TAB7 PO (06:09)
[2019-06-11] MEDS ORDERED: KETO10TAB PO (06:11)
== END 2019-06-10 23:19 | disposition home or self-care (01) ==
LOC: M ED 20:15
DX: R31.9 Hematuria, unspecified (principal); I48.91 Unspecified atrial fibrillation; G47.30 Sleep apnea, unspecified; Z79.899 Other long term (current) drug therapy; Z79.01 Long term (current) use of anticoagulants; Z88.0 Allergy status to penicillin

== ENCOUNTER 2019-06-11 04:25 | Emergency (ER) | payer MEDICARE, BC, OTHER ==
[2019-06-11 04:57] LABS: BASO % 0.3 % (0.0-1.0); EOS # 0.2 10^3/uL (0.0-0.5); EOS % 2.5 % (0.0-3.0); HEMATOCRIT 40.6 % (42.0-52.0); HEMOGLOBIN 13.2 g/dl (13.5-17.5); LYMPH # 1.8 10^3/uL (1.5-5.0); LYMPH % 26.3 % (24.0-44.0); MEAN CORPUSCULAR HEMOGLOBIN 30.1 pg (27.0-33.0); MEAN CORPUSCULAR HGB CONC 32.5 g/dl (32.0-36.5); MEAN CORPUSCULAR VOLUME 92.5 fl (80.0-96.0); MONO # 0.8 10^3/uL (0.0-0.8); MONO % 11.3 % (0.0-5.0); NEUTROPHILS % 59.5 % (36.0-66.0); PLATELET COUNT, AUTOMATED 197 10^3/uL (150-450); RED BLOOD COUNT 4.39 10^6/uL (4.30-6.10); WHITE BLOOD COUNT 6.7 10^3/uL (4.0-10.0)
--- NOTE | 2019-06-11 05:23 | REPVR ---
PROCEDURE INFORMATION: Exam: CT Abdomen And Pelvis Without Contrast Exam date and time: 06/11/2019 4:35 AM Age: 79 years old Clinical indication: Abdominal pain; Localized; Patient HX: Right side pain; Additional info: Hematuria TECHNIQUE: Imaging protocol: Computed tomography of the abdomen and pelvis without contrast. Radiation optimization: All CT scans at this facility use at least one of these dose optimization techniques: automated exposure control; mA and/or kV adjustment per patient size (includes targeted exams where dose is matched to clinical indication); or iterative reconstruction. COMPARISON: [facility] Spine, Lumbosacral, partial 07/02/2018 3:30 PM FINDINGS: Lungs: Minimal bibasilar fibro-atelectatic change. Mediastinum: Minimal hiatal hernia. Liver: Normal. No mass. Gallbladder and bile ducts: There are a few gallstones in the gallbladder which is somewhat contracted. Pancreas: Normal. No ductal dilation. Spleen: Normal. No splenomegaly. Adrenals: Normal. No mass. Kidneys and ureters: Mild right perinephric stranding and induration and minimal right hydronephrosis which extends to a proximal right ureteral calculus just below the UPJ measuring 2 x 3 x 4 mm. Question of left renal peripelvic cysts in the lower pole. Stomach and bowel: There is colonic diverticulosis without evidence of diverticulitis. Appendix: Top-normal size of the appendix tip measuring up to 8 mm with no surrounding induration. Intraperitoneal space: Unremarkable. No free air. No significant fluid collection. Vasculature: Unremarkable. No abdominal aortic aneurysm. Lymph nodes: Unremarkable. No enlarged lymph nodes. Bladder: There is bladder wall thickening, however, the bladder is nondistended and is nonspecific. Reproductive: Unremarkable as visualized. Bones/joints: Mild degenerative changes of the lumbar spine with facet arthropathy. Soft tissues: Question of prior inguinal hernia repairs bilaterally. Other findings: Minimal recanalization of ligamentum teres. IMPRESSION: 1. Proximal right ureteral calculus just below the right UPJ measuring 2 x 3 x 4 mm with obstructive uropathy. 2. Cholelithiasis. 3. There is bladder wall thickening, however, the bladder is nondistended and is nonspecific. Cystitis is not excluded. 4. Colonic diverticulosis without diverticulitis. Electronically signed by: Rashid Rodrigues On 06/11/2019 05:23:31 AM
[2019-06-11 05:40] LABS: ALBUMIN 3.6 GM/DL (3.2-5.2); ALT/SGPT 26 U/L (12-78); BILIRUBIN,DIRECT 0.2 MG/DL (0.0-0.2); BILIRUBIN,TOTAL 0.6 MG/DL (0.2-1.0); BLOOD UREA NITROGEN 19 MG/DL (7-18); CALCIUM LEVEL 8.6 MG/DL (8.8-10.2); CARBON DIOXIDE LEVEL 28 MEQ/L (21-32); CHLORIDE LEVEL 107 MEQ/L (98-107); CREATININE FOR GFR 1.01 MG/DL (0.70-1.30); GLOMERULAR FILTRATION RATE > 60.0 (>42); GLUCOSE, FASTING 98 MG/DL (70-100); LIPASE 82 U/L (73-393); POTASSIUM SERUM 4.1 MEQ/L (3.5-5.1); SODIUM LEVEL 140 MEQ/L (136-145); TOTAL PROTEIN 6.3 GM/DL (6.4-8.2)
[2019-06-11] MEDS ORDERED: KETOROLAC 30 MG/ML VIAL (J1885) IV ONE (06:00)
[2019-06-11] MEDS ORDERED: CEFD1CAP8 PO (06:09)
[2019-06-11] MEDS ORDERED: NORC1TAB7 PO (06:09)
[2019-06-11] MEDS ORDERED: KETO10TAB PO (06:11)
[2019-06-11] MEDS ORDERED: CEFDINIR 300 MG CAP (OMNICEF) PO ONE (06:15)
[2019-06-11 06:35] VITALS: BP 111/71
--- NOTE | 2019-06-11 07:27 | ECGEPIP ---
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
== END 2019-06-11 06:37 | disposition home or self-care (01) ==
LOC: M ED 04:25 → EDBD 04:25 → M ED 06:37
DX: N20.1 Calculus of ureter (principal); I48.91 Unspecified atrial fibrillation; G47.33 Obstructive sleep apnea (adult) (pediatric); Z79.899 Other long term (current) drug therapy; Z79.01 Long term (current) use of anticoagulants; Z88.0 Allergy status to penicillin
CPT/HCPCS: 74176; 80048; 80076; 83690; 85025; 93005; 93041; 96374; 99284; J1885

== ENCOUNTER → 2019-06-30 | Outpatient (REF) | payer MEDICARE, OTHER ==
[~2019-06-30] MED LIST changes: +CEFD1CAP8 PO; +KETO10TAB PO; +NORC1TAB7 PO
== END ==
LOC: M SMT 12:45
PROVIDERS: ATTEND Nurse Practitioner Women's Health
DX: N13.2 Hydronephrosis with renal and ureteral calculous obstruction (principal)

== ENCOUNTER 2020-09-18 09:58 | Emergency (ER) | payer MEDICARE, BC, OTHER ==
[~2020-09-18] VITALS: Ht 167.6 cm; Wt 68.6 kg
--- NOTE | 2020-09-18 10:22 | REP ---
INDICATION: FALL ON ELIQUIS COMPARISON: None. TECHNIQUE: Axial noncontrast images from the skull base to the thoracic inlet with coronal reformations. This CT examination was performed using the following dose reduction techniques: Automated exposure control, adjustment of mA and/or kv according to the patient's size, and use of iterative reconstruction technique. FINDINGS: Atrophy with periventricular leukomalacia and microvascular ischemic changes are appreciated. The ventricles and sulci are symmetric. Isabel-white differentiation is maintained. There is no evidence for acute intracranial hemorrhage, mass/mass effect, pathology or infarction. No extra-axial fluid collection. Calvarium is intact. Paranasal sinuses and mastoid air cells are clear. IMPRESSION: Atrophy and microvascular ischemic changes. No acute intracranial hemorrhage, infarction, or mass/mass effect. <Electronically signed by Lc Osorio > 09/18/20 [id number]
[2020-09-18 11:08] VITALS: BP 126/65
== END 2020-09-18 11:13 | disposition home or self-care (01) ==
LOC: M ED 09:58
DX: S00.03XA Contusion of scalp, initial encounter (principal); W22.09XA Striking against other stationary object, initial encounter; Y92.009 Unspecified place in unspecified non-institutional (private) residence as the place of occurrence of the external cause; Y93.89 Activity, other specified; Y99.8 Other external cause status; I48.91 Unspecified atrial fibrillation; Z79.01 Long term (current) use of anticoagulants; Z79.899 Other long term (current) drug therapy; Z88.0 Allergy status to penicillin

== ENCOUNTER 2021-11-14 08:03 | Emergency (ER) | payer MEDICARE, BC, OTHER ==
[~2021-11-14] VITALS: Ht 170.2 cm; Wt 63.6 kg
[~2021-11-14 08:03] MED LIST changes: -CEFD1CAP8 PO; +CEFD300C41 PO
[2021-11-14 09:45] VITALS: BP 133/61
== END 2021-11-14 10:02 | disposition home or self-care (01) ==
LOC: M ED 08:03
DX: S09.90XA Unspecified injury of head, initial encounter (principal); W22.8XXA Striking against or struck by other objects, initial encounter; Y92.013 Bedroom of single-family (private) house as the place of occurrence of the external cause; I48.91 Unspecified atrial fibrillation; Z88.0 Allergy status to penicillin; Z79.01 Long term (current) use of anticoagulants

== ENCOUNTER 2022-02-02 09:09 | Emergency (ER) | payer MEDICARE, BC, OTHER ==
[~2022-02-02] VITALS: Ht 170.2 cm; Wt 64.7 kg
[2022-02-02] MEDS ORDERED: SELE25SHA (09:42)
[2022-02-02 12:52] VITALS: BP 154/74
== END 2022-02-02 12:54 | disposition home or self-care (01) ==
LOC: M ED 09:09
DX: M47.892 Other spondylosis, cervical region (principal); M50.30 Other cervical disc degeneration, unspecified cervical region; M54.2 Cervicalgia; I48.91 Unspecified atrial fibrillation; G47.33 Obstructive sleep apnea (adult) (pediatric); Z79.01 Long term (current) use of anticoagulants; Z79.899 Other long term (current) drug therapy; Z88.0 Allergy status to penicillin

== ENCOUNTER → 2023-05-24 | Outpatient (CLI) | payer MEDICARE, BC, OTHER ==
[~2023-05-24] MED LIST changes: +CEFD1CAP9 PO; -CEFD300C41 PO; +SELE25SHA
== END ==
LOC: M WUC 09:57
PROVIDERS: ATTEND Internal Medicine
DX: M11.262 Other chondrocalcinosis, left knee (principal); M17.12 Unilateral primary osteoarthritis, left knee

== ENCOUNTER → 2023-11-29 | Outpatient (CLI) | payer MEDICARE, BC, OTHER | LOC: M WUC 09:41 | PROVIDERS: ATTEND Physician Assistant | DX: M79.671 Pain in right foot (principal); M77.31 Calcaneal spur, right foot ==